=== PATIENT | female | born 1975 | race Caucasian/White ===

== ENCOUNTER 2021-12-01 20:51 | Emergency (ER) | payer OTHER ==
[~2021-12-01] VITALS: Ht 162.6 cm; Wt 77.1 kg
[2021-12-01 21:19] VITALS: BP 114/61
[2021-12-01] MEDS ORDERED: ALBUTEROL FS 2.5 MG/3 ML VIAL.NEB ONE (21:50)
[2021-12-01] MEDS ORDERED: IPRATROPIUM NEB FS 0.5 MG/2.5 ML AMPUL.NEB ONE (21:50)
[2021-12-01] MEDS ORDERED: FLUT1DIS INH (21:55)
[2021-12-01] MEDS ORDERED: PROM118S PO (21:55)
[2021-12-01] MEDS ORDERED: BENZ-13 PO (21:55)
[2021-12-01] MEDS ORDERED: ALBU18HF2 INH (21:55)
[2021-12-01] MEDS ORDERED: ALBUTEROL FS 2.5 MG/3 ML VIAL.NEB NEB ONE (22:00)
[2021-12-01] MEDS ORDERED: IPRATROPIUM NEB FS 0.5 MG/2.5 ML AMPUL.NEB NEB ONE (22:00)
--- NOTE | 2021-12-01 22:16 | NUR ---
Patient discharged to home in stable condition. Written and verbal after care instructions given. Patient verbalizes understanding of instruction. Pt ambulatory with a steady gait
== END 2021-12-01 22:16 | disposition home or self-care (01) ==
LOC: ER 20:54
DX: J06.9 Acute upper respiratory infection, unspecified (principal); J45.901 Unspecified asthma with (acute) exacerbation; J45.909 Unspecified asthma, uncomplicated; Z79.51 Long term (current) use of inhaled steroids